=== PATIENT | female | born 1955 ===

== ENCOUNTER 2018-05-21 09:39 | Day surgery (SDC) | payer BC ==
[~2018-05-21] VITALS: Ht 167.6 cm; Wt 63.1 kg
[2018-05-21] MEDS ORDERED: SODIUM CHLORIDE 0.9% 1,000 ML IV SCH (10:08)
[2018-05-21 10:26] VITALS: BP 106/67
[2018-05-21] MEDS ORDERED: CEFAZOLIN PMX 1GM/50ML 50 ML IV ONE (10:30)
[2018-05-21] MEDS ORDERED: FENTANYL PF 100 MCG/2ML ONE (11:46)
[2018-05-21] MEDS ORDERED: NALOXONE 1 MG/ML, 2ML ONE (11:47)
[2018-05-21] MEDS ORDERED: FLUMAZENIL 0.1 MG/1 ML, 5ML ONE (11:47)
[2018-05-21] MEDS ORDERED: MIDAZOLAM 1 MG/ML, 5ML ONE (11:47)
[2018-05-21] MEDS ORDERED: LIDOCAINE 1%, 20ML ONE (11:58)
== END 2018-05-21 14:00 | disposition home or self-care (01) ==
LOC: OUT 09:39
PROVIDERS: ATTEND Specialist
DX: Z45.2 Encounter for adjustment and management of vascular access device (principal); C50.412 Malignant neoplasm of upper-outer quadrant of left female breast; Z17.0 Estrogen receptor positive status [ER+]; Z98.890 Other specified postprocedural states; Z90.10 Acquired absence of unspecified breast and nipple
CPT/HCPCS: 36561; 77001; 99156; 99157; C1788; J0690; J1642; J2250; J3010; J3490; J7030; J2310